=== PATIENT | male | born 2000 | race Two or more races ===

== ENCOUNTER 2025-03-12 06:18 | Emergency (ER) | payer MEDICAID, OTHER ==
[~2025-03-12] VITALS: Ht 172.7 cm; Wt 90.7 kg
[2025-03-12 06:21] VITALS: BP 188/119; TEMP 97.8; O2SAT 98
[2025-03-12] MEDS ORDERED: IBUPROFEN 600 MG TABLET ONE (06:41)
[2025-03-12] MEDS: IBUPROFEN 600 MG TABLET PO ONE (06:43)
== END 2025-03-12 07:44 | disposition home or self-care (01) ==
LOC: ER 06:31
DX: S39.012A Strain of muscle, fascia and tendon of lower back, initial encounter (principal); S80.02XA Contusion of left knee, initial encounter; I10 Essential (primary) hypertension; V29.39XA Other motorcycle (driver) (passenger) injured in unspecified nontraffic accident, initial encounter; Y93.89 Activity, other specified; Y92.410 Unspecified street and highway as the place of occurrence of the external cause; Y99.9 Unspecified external cause status
CPT/HCPCS: 72110-TC; 73564-TC

== ENCOUNTER 2025-03-27 20:06 | Emergency (ER) | payer OTHER ==
[~2025-03-27] VITALS: Ht 172.7 cm; Wt 93.0 kg
[2025-03-27] MEDS ORDERED: ACETAMINOPHEN ES 500 MG TABLET ONE (20:34)
[2025-03-27] MEDS ORDERED: TDAP [DIPH/PERTUSSIS/TET] 0.5 ML VIAL IM ONE (20:34)
[2025-03-27] MEDS: ACETAMINOPHEN ES 500 MG TABLET PO ONE (20:38)
[2025-03-27] MEDS ORDERED: LIDOCAINE 1%-EPI 1:100,000 20 ML VIAL ONE (20:42)
[2025-03-27] MEDS: LIDOCAINE 1%-EPI 1:100,000 20 ML VIAL TP ONE (20:46)
[2025-03-27] MEDS: TDAP [DIPH/PERTUSSIS/TET] 0.5 ML VIAL IM ONE (21:00)
[2025-03-27] MEDS ORDERED: IBUP-1490 PO (21:04)
[2025-03-27 21:28] VITALS: BP 130/90; TEMP 209.1; O2SAT 96
== END 2025-03-27 21:29 | disposition home or self-care (01) ==
LOC: ER 20:12
DX: S01.01XA Laceration without foreign body of scalp, initial encounter (principal); I10 Essential (primary) hypertension; Z60.2 Problems related to living alone; X99.1XXA Assault by knife, initial encounter; Y93.89 Activity, other specified; Y92.89 Other specified places as the place of occurrence of the external cause; Y99.8 Other external cause status
CPT/HCPCS: 12004; 90471; 90715; 99283; A6403; J3490